=== PATIENT | male | born 1980 | race Caucasian/White ===

== ENCOUNTER 2020-11-22 21:16 | Inpatient (IN) | payer OTHER ==
[~2020-11-22] VITALS: Ht 177.8 cm; Wt 98.4 kg
--- NOTE | 2020-11-23 03:05 | NUR ---
PATIENT ADMISSION COMPLETED. PATIENT REPORTS 10/10 EPIGASTRIC PAIN. PATIENT GIVEN PRN PAIN MEDICATION PER ORDER. PATIENTS IV INFUSING PER ORDER. PATIENT DENIES ANY NAUSEA. ALL QUESTIONS ANSWERED. PATIENT DENIES ANY FURTHER NEEDS. CALL LIGHT IN REACH.
--- NOTE | 2020-11-23 03:09 | NUR ---
PHONE CALL TO , NOTIFIED OF pt REPORT OF PAIN NOT CONTROLLED WITH CURRENT PRN PAIN MEDICATION ORDER. NEW ORDERS RECEIVED AND REPEATED BACK TO VERIFY. OKAY FOR ICE CHIPS IF NOT VOMITTING.
--- NOTE | 2020-11-23 03:25 | NUR ---
PATIENT CONTINUES TO REPORT 8/10 PAIN. PRN PAIN MEDICATION GIVEN PER ORDER. PAITENT IS RESTING IN BED. IV INFUSING PER ORDER.
--- NOTE | 2020-11-23 04:30 | NUR ---
PATIENT GIVEN PRN PAIN MEDICAITON FOR 7/10 PAIN IN HIS MID UPPER QUADRANT. PATIENT IS UP TO THE RESTROOM AT THIS TIME.
--- NOTE | 2020-11-23 05:43 | NUR ---
PATIENT GIVEN PRN PAIN MEDICATION PER REQUEST. PATIENT RATES HIS PAIN AT A 7/10 IN HIS UPPER MID QUADRANT. PATIENT DENIES ANY FURTHER NEEDS.
--- NOTE | 2020-11-23 06:56 | NUR ---
PATIENT GIVEN PRN PAIN MEDICATION PER ORDER. PATIENT WAS ABLE TO VOID. INTAKE AND OUTPUT RECORDED. PATIENT DENIES ANY FURTHER NEEDS. CALL LIGHT IN REACH.
--- NOTE | 2020-11-23 07:45 | NUR ---
THIS RN IN PTS ROOM PER PT REQUEST TO PROVIDE 1MG OF DILUADID, 10MG OXY AND 4MG OF ZOFRAN. IN PTS ROOM AT THIS TIME WELL
--- NOTE | 2020-11-23 09:10 | NUR ---
THIS RN IN PTS ROOM TO GIVE PT HIS MORNING MEDS. PT WAS JUST GIVEN 1MG OF DILUADID. PT REQUESTING A CUP OF COFFEE FOR A HEADACHE. THIS RN PER MD APPROVAL OF KEEPING WATER DOWN PROVIDED PT WITH 1/2 CUP OF COFFEE.
--- NOTE | 2020-11-23 10:57 | NUR ---
SPOKE WITH PATIENT IN ROOM. PATIENT IS CLEARLY UNCOMFORTABLE WITH ABD PAIN SO DID NOT PUSH TO ELABORATE ANSWERS AT THIS TIME. PATIENT LIVES IN [place]. [facility] [place]. DRIVES TRUCK. HAS FRIENDS TO HELP IF NEEDED. USES NO DME. UNCLEAR HOW HE WILL GET HOME YET. COMPANY KNOWS HE IS HERE AND TRUCK IS AT [place]. WILL LET US KNOW IF HE HAS NO WAY TO GET HOME. PLANS TO RETURN TO [place]. DENIES WORRY TO AFFORD MEDS/FOOD/UTILTIES. CM WILL FOLLOW NEEDED.
--- NOTE | 2020-11-23 11:15 | NUR ---
THIS RN IN PTS ROOM TO [facility] ON PT. PT APPEARS TO BE IN PAIN, THIS RN TO DOSE PT WITH 1MG OF DILAUDID AT THIS TIME. PT THEN BECAME GCS OF 14 INSTEAD OF 15 PREVIUSLY. THIS RN PROVIDED PT WITH HIS URINAL CLOSE TO BED. PT TOELRATING SIPS OF COFFEE AND WATER WITH NASUEA ONLY NOTED WHEN PAIN GETS WORSE
--- NOTE | 2020-11-23 12:04 | NUR ---
PATIENT GIVEN 10MG OF PO OXYCODONE FOR 7/10 ABD PAIN.
--- NOTE | 2020-11-23 13:49 | NUR ---
PT BACK TO BED AFTER SHOWER. PT ASKING ABOUT MORE PAIN MEDS. THIS RN DISCUSSED WITH PT ABOUT HIS CONSCIOUSNESS. THIS RN WILL REASESS PTS PAIN LEVEL AND A&O IN A BIT. PT WAS ABLE TO VOID. PROVIDED PT WITH WARM BLANKETS DUE TO PT NOTING THAT HE WAS COLD.
[2020-11-23] MEDS ORDERED: CYCLOBENZAPRINE10 MG PO (14:03)
[2020-11-23] MEDS ORDERED: TRAZODONE HCL50 MG PO (14:03)
[2020-11-23] MEDS ORDERED: PANTOPRAZOLE SO40 MG PO (14:04)
--- NOTE | 2020-11-23 15:20 | NUR ---
Pt ambulated to bedside chair, has stead gait, denies dizziness, pt sitting up in bedside chair, states "comfortable." PT denies needs, watching tv. Pt states pain medication working well, pain mostly 0/10 but does increase to 3/10. PT states 3/10 is a comfortable level.
--- NOTE | 2020-11-23 18:09 | NUR ---
THIS RN IN PTS ROOM TO GIVE PT 1MG OF DILUDID FOR A PIAN 09/27. PT IN PROCESS OF REMOVING HEAT PACK FROM BACK STATING "IT'S TOO HOT" PT REPORTS GETTING PAIN RELIEF THE HEAT PACK. PT REPORTS NEEDING NOTHING FURTHER AT THIS TIME
--- NOTE | 2020-11-23 18:58 | NUR ---
THIS RN IN PTS ROOM TO CHANGE PTS FLUID BAGS. WHEN THIS RN ENTERED ROOM PT WAS UP AT THE SINK AND TAKING A SIP OF WATER, PT MUMBLED THAT HE WAS "RINSING MOUTH" PT THEN BEGAN MUMBLING SOMEHTING THAT WAS UNDETECTABLE TO THIS RN. PT THEN MITERED HIS CORNERS OF HIS BED AND MUMBLED SOMETHING ELSE AND THEN GOT BACK TO BED. PT IS STEADY ON HIS FEET.
--- NOTE | 2020-11-23 19:00 | NUR ---
QAMAR alerts this RN that patient's IV is bleeding. In room to assess, IV leaking fluid. IV patent, flushes well and brisk blood return. Dressing changed and WNL. Pt has no further needs. QAMAR Segovia in room at this time.
--- NOTE | 2020-11-23 19:54 | NUR ---
RECEIVED REPORT FROM DAY SHIFT RN. PATIENT IS RESTING IN BED. PATIENT DENIES ANY NEEDS. CALL LIGHT IN REACH.
--- NOTE | 2020-11-23 20:08 | NUR ---
PATIENT GIVEN PRN PAIN MEDICATION PER ORDER FOR 7/10 PAIN IN HIS UPPER ABD PAIN.
--- NOTE | 2020-11-23 21:20 | NUR ---
PATIENT ASSESMENT COMPLETED. PATIENT GIVEN PRN PAIN MEDICATION PER ORDER FOR 7/10 PAIN IN HIS UPPER MID QUADRANT. PATIENTS IV IS INFUSING PER ORDER. SLEEP MEDICATION GIVEN PER ORDER. PATIENT DENIES ANY NAUSEA. NO FURTHER NEEDS NOTED. CALL LIGHT IN REACH.
--- NOTE | 2020-11-23 22:40 | NUR ---
CALL LIGHT ANSWERED. PRN PAIN MEDICATION ADMINISTERED FOR 7-8/10 PAIN IN ABDOMEN, FLANK, HEADACHE. WARM PACK PROVIDED, KPAD IN PLACE. IVF INFUSING WNL. pt DROWSY, HOLDS WARM PACK STATES "WHAT DO I NEED TO DO WITH THIS PLASTIC PART". REFERRING TO WARM PACK TOP THAT IS CLOSED. pt ASKING WHERE CONTROLS ARE, BED CONTROLS SHOWN TO pt AND CALL LIGHT IN REACH.
--- NOTE | 2020-11-23 23:48 | NUR ---
PATIENT IS RESTING IN BED WITH EYES CLOSED, RR 16. IV INFUSING. K-PAD IN PLACE ON PATIENTS RUQ. CALL LIGHT IN REACH.
--- NOTE | 2020-11-24 01:24 | NUR ---
PATIENT IS RESTING IN BED WITH EYES CLOSED, RR 18. CALL LIGHT IN REACH.
--- NOTE | 2020-11-24 07:17 | NUR ---
0520 PATIENT UNRESPONSIVE. PATIENT PLACED ON 15L VIA NC/15L VIA OXYMASK OXYGEN SATURATION WAS 57%. VITALS TAKEN AND RECORDED 0525 RAPID RESPONSE CALLED. PATIENT STILL UNRESPONSIVE. BS CHECK COMPLETED AND IS 199. 0545 TORRIE NOTIFIED AND IS HEADED TO FLOOR. 0.4MG NARCAN ADMINISTERED 0550 NO RESULT FROM NARCAN. PATIENT IS STILL UNRESPONSIVE. VITALS TAKEN AND RECORDED. 0555 PUPILS REACTIVE, NO RESPONSE TO STIMULI 0558 PT MOVED HEAD BUT NO RESPONSE TO STIMULI. DR BROWNLEE AT THE BEDSIDE 0559 FLUIDS WIDE OPEN IN LEFT HAND, PRESSURE FLUID ADMINISTERED INRIGHT A/C 0559 NOR-EPI DRIP STARTED PER MD @5 VITALS TAKEN AND RECORDED. 0620-PT TO CT 0635-PT OPENED EYES WHEN MOVED FROM CT TABLE AND GRIMACED. STILL NO RESPONSE TO NAME 0645 PT TO ROOM 130 AND QUINTERO PLACED. NO RESPONSE WHEN QUINTERO PLACED 0645 NOR-EPI STOPPED AND FLUIDS RESUMED AT 200ML PER HOUR 0714 REPORT GIVEN TO DAY SHIFT CCU RN
--- NOTE | 2020-11-24 07:30 | NUR ---
RECEIVED REPORT [id number]. PT IN ROOM ON NON-REBREATHER AT 15L AT THIS TIME. V/S STABLE OVERALL.
--- NOTE | 2020-11-24 08:15 | NUR ---
UPON ENTERING PT ROOM @ 0805, IT WAS NOTED THAT PT HAD 15SEC+ PERIODS OF APNEA. O2 SATS DROPPED TO MID 80'S AT THAT TIME. STERNAL RUB DID NOT EVOKE A RESPONSE AT ALL. PT DOES NOT RESPOND TO PAINFUL STIMULI. O2 PUT ON 10L OXYMASK. WILL CALL MD BROWNLEE.
--- NOTE | 2020-11-24 08:16 | NUR ---
ORDER TO PUT PT ON BI-PAP WAS RECEIVED FROM MD BROWNLEE.
--- NOTE | 2020-11-24 08:30 | NUR ---
ARMORED VEHICLE OFFICER CALLED MD BROWNLEE ABOUT INTUBATING PT. ARMORED VEHICLE OFFICER ALSO CALLED [employer]IV[employer]ILL[employer] ADVISOR AND THEY ARE ON THEIR WAY.
--- NOTE | 2020-11-24 08:50 | NUR ---
INTUBATION NOTE: 0837- MICHELLE IN ROOM, SUCTIONS SET UP AND READY TO GO, AMBU BAG SET UP REANDY TO GO, BAG LR WITH STRAIGHT TUBING SET UP AND READY TO GO, ORAL AIRWAY PLACED BY RT A FEW MINUTES PRIOR. 0838- MD BROWNLEE AT BEDSIDE, AGREED TO INTUBATE. HR 124, 143/85 (105), ETCO2 42, RR 12, APNIC PERIODS. 0842- 50MG ROCURONIUM GIVEN, 200MCG PROPFOL GIVEN, 50MG ROCURONIOUM GIVEN, 0843- INTUBATION STARTED AND FINISHED, TUBE 21CM AT THE LIP, 7.5 SIZE TUBE, ETCO2 63. 0844- X-RAY CALLED FOR TUBE PLACEMENT VERYFICATION, PT ON AMBU BAG, RT SETTING UP VENT, 100MCG PHEN. EPI GIVEN DUE TO LOW BP IN THE 60'S. 0847- PT HOOKED UP TO VENT, PHENY. EPI 200MCG GIVEN.
--- NOTE | 2020-11-24 08:50 | NUR ---
MED REC COMPLETE
--- NOTE | 2020-11-24 09:30 | NUR ---
PT SO FAR PT DID NOT NEED ANY ADDITIONAL SEDATION. PT ON 8MCG OF NOR-EPI. BP WDL. RESTRAINTS WDL. WILL CONTINUE TO MONITOR.
--- NOTE | 2020-11-24 10:45 | NUR ---
RECEIVED CALL FROM [facility]. [facility] HAS NO ICU BEDS CURRENTLY. THEY HAVE PLACED PARAMJIT ON WAIT LIST. HIS IS #3 CURRENTLY ON LIST. THEY HAVE MY NUMBER IN DISCHARGE OFFICE, DR FERNANDES CELL PHONE NUMBER TO CONTACT IF A BED OPENS UP. DR BROWNLEE UPDATED. STAFF UPDATED.
--- NOTE | 2020-11-24 11:15 | NUR ---
SPOKE WITH ADDIE AT [facility]. CHART HAD BEEN FAXED TO THEM PRIOR ROUTINE FOR [employer]. DISCUSSED UPDATE WITH THEM. OSMIN RN STATES IT WOULD PROBABLY BE IN HIS BEST INTEREST TO TRANSFER TO [facility] IF POSSIBLE HE IS FROM [place]. SHE WILL REACH OUT TO TRANSFER TEAM.
--- NOTE | 2020-11-24 11:30 | NUR ---
PT SO FAR HAS REQUIRED 2MG OF IV VERSED BECAUSE HE WOKE UP. PT NOW SEDATED AGAIN. WILL CONTINUE TO MONITOR.
--- NOTE | 2020-11-24 12:29 | NUR ---
CHECKED WITH MADDIE OZUNA-PT IS INTEBATED, FROM [place]. WILL CONTINUE TO FOLLOW
--- NOTE | 2020-11-24 12:30 | NUR ---
PT HAS TIMES WHEN HE AWAKENS. PRN VERSED HAS TO BE GIVEN THEN. OVERALL PT STABLE AT THIS TIME.
--- NOTE | 2020-11-24 13:30 | NUR ---
PT NOW ON 5MCG/KG/HR OF PROPOFOL DRIP. PT STILL REQUIRES VERSED AT TIMES. BP'S HOLDING SO FAR. IT WAS NOTED THAT HIS ABDOMEN AT THIS TIME IS MORE DISTENDED. WILL CONTINUE TO MONITOR.
--- NOTE | 2020-11-24 15:30 | NUR ---
PT OVERALL IS STABLE WITH CURRENT MODALITIES.
--- NOTE | 2020-11-24 16:15 | NUR ---
PT NOW HAS A TEMP OF 101.1 F. LOBES ARE VERY DIMINISHED. URINE OUTPUT AT ABOUT 75MLS /HR, AND IS SOMEWHAT DISTENDED WITH NOW HYPOACTIVE BOWEL TONES. WILL CALL MD BROWNLEE.
--- NOTE | 2020-11-24 16:30 | NUR ---
NEW ORDERS WERE RECEIVED FROM MD BROWNLEE. WILL CONTINUE TO MONITOR.
--- NOTE | 2020-11-24 18:05 | NUR ---
V/S WDL SO FAR. URINE /HR REMAINS AT ABOUT 75MLS. PROPOFOL DRIP NOW AT 15MCG/KG/HR. ABD STILL SOMEWHAT DISTENDED, BILATERAL HANDS NOW HAVE SOME EDEMA PRESENT WELL. TEMP NOW 99.1 F. RESTRAINTS WDL, VENT SETTINGS: FIO2 50%, RR 22 PEEP8.
--- NOTE | 2020-11-24 19:56 | NUR ---
SHIFT REPORT RECEIVED FROM MADDIE WALKER. PT'S GIRLFRIEND, MILY IN ROOM. CALL LIGHT ANSWERED, PT APPEARS AGITATED AND IS REACHING FOR TUBE. RE-ORIENTED PT TO SURROUNDINGS/SITUATION, 2MG IV VERSED GIVEN. ANSWERED MILY'S QUESTIONS, SHE HAS CALL LIGHT WITHIN REACH.
--- NOTE | 2020-11-24 20:15 | NUR ---
PT NOW RESTING COMFORTABLY AFTER PRN VERSED, RASS -2. ASSESSMENT COMPLETED -SEE DOCUMENTATION. ORAL SUCTIONING AND ORAL CARE PROVIDED, MINIMAL CLEAR ORAL SECRETIONS NOTED. IN-LINE SUCTIONING PROVIDED, MINIMAL CLEAR SECRETIONS NOTED. ETT REPOSITIONED TO CENTER MOUTH, REMAINS 21CM AT TEETH. OG IN PLACE WITH TUBE FEED INFUSING AT 10ML/HR, 25ML RESIDUAL (MIXED TUBE FEED AND BILE) RETURNED TO PT AND 50ML WATER FLUSH PROVIDED. IV SITES REMAIN PATENT AND INTACT. PROPOFOL CURRENTLY AT 15MCG/KG/MIN. QUINTERO PATENT, CATH CARE PROVIDED. PT REPOSITIONED TO RIGHT SIDE WITH PILLOW SUPPORT. RESTRAINTS RELEASED FOR ROM AND THEN REPLACED, CMS INTACT.
--- NOTE | 2020-11-24 21:00 | NUR ---
DR. BROWNLEE IN TO SEE PT AND PROVIDE AN UPDATE TO PT'S GIRLFRIEND MILY. Rob. MADE ADJUSTMENTS TO VENT SETTINGS. RATE DECREASED TO 18, FIO2 DECREASED TO 30%.
--- NOTE | 2020-11-24 22:00 | NUR ---
VENT SETTINGS UNCHANGED. VC-AC, RATE 18, 30% FIO2, PEEP 8. ORAL AND INLINE SUCTIONING PROVIDED, MODERATE ORAL SECRETIONS NOTED. PT REPOSITIONED TO SUPINE WITH BUE AND BLE ELEVATED ON PILLOWS, HEEL PROTECTORS IN PLACE. IV TO RIGHT AC LEAKING, NEW DRESSING IN PLACE. BP CUFF MOVED TO LEFT ARM AND PULSE OX PROBE REPOSITIONED TO RIGHT HAND. QUINTREO EMPTIED. PROPOFOL WITH NEW TUBING HUNG. RASS -2 AT THIS TIME, PROPOFOL CONTINUES TO INFUSE AT 15 MCG/KG/MIN.
--- NOTE | 2020-11-24 22:30 | NUR ---
PT'S GIRLFRIEND CALLED, PT AGITATED, RASS +2. 2MG IV VERSED GIVEN AND PROPOFOL INCREASED TO 20 MCG/KG/MIN.
--- NOTE | 2020-11-25 | NUR ---
ASSESSMENT COMPLETED-SEE DOCUMENTATION. PT REPOSITIONED ONTO LEFT SIDE WITH PILLOW SUPPORT. WRIST RESTRAINTS REMOVED FOR ROM AND REPLACED, CMS REMAINS INTACT. ORAL CARE PROVIDED, MODERATE ORAL SECRETIONS NOTED WITH SUCTIONING, MINIMAL INLINE SECRETIONS NOTED. ETT REPOSITIONED TO LEFT SIDE OF MOUTH, REMAINS AT 21CM AT TEETH. TUBE FEED CONTINUES AT 10ML/HR, 25ML OF RESIDUAL NOTED AND RETURNED TO PT. IV SITES REMAIN INTACT AND PATENT. PROPOFOL CONTINUES AT 20MCG/KG/MIN. QUINTERO PATENT, UO QS. RASS -1. VENT SETTINGS: VC-AC, RATE 18, 25%, PEEP 8. PT'S GIRLFRIEND REMAINS IN ROOM, HAS CALL LIGHT WITHIN REACH.
--- NOTE | 2020-11-25 01:36 | NUR ---
CALL LIGHT ANSWERED. PT BECOMING AGITATED, GAGGING ON/REACHING FOR ET TUBE. PRN VERSED GIVEN.
--- NOTE | 2020-11-25 02:00 | NUR ---
PT REPOSITIONED TO SUPINE, BUE AND BLE ELEVATED ON PILLOWS. RESTRAINTS RELEASED FOR ROM AND REPLACED, CMS REMAINS INTACT. ORAL AND IN-LINE SUCTIONING PROVIDED, MODERATE ORAL SECRETIONS NOTED. R.T. IN ROOM, FIO2 TITRATED TO 21%. RASS -1.
--- NOTE | 2020-11-25 04:05 | NUR ---
CALL LIGHT ANSWERED. PT IS AGITATED, COUGHING/GAGGING ON ETT WELL REACHING FOR IT, PRN VERSED GIVEN AND PT QUICKLY BECOMES RESTFUL. ORAL CARE AND SUCTIONING PROVIDED, MODERATE WHITE SECRETIONS NOTED. ETT REPOSITIONED TO RIGHT SIDE OF MOUTH. RESTRAINTS RELEASED, ROM PROVIDED, CMS INTACT. PT REPOSITIONED TO RIGHT SIDE WITH PILLOW SUPPORT. QUINTERO PATENT. OG CONTINUES AT 10ML/HR, 10ML RESIDUAL NOTED AND RETURNED TO PT. NO OTHER CHANGES AT THIS TIME.
--- NOTE | 2020-11-25 07:07 | NUR ---
SEDATION TURNED OFF AT 0610. R.T. AT BEDSIDE WITH THIS RN TO ADJUST VENT SETTINGS. AFTER WAKING UP, PT TRIES TO FOLLOW COMMANDS. PER MD, R.T. SWITCHED VENT SETTINGS TO CPAP FOR 30 MINUTES. AT THAT TIME PT ALERT, AND FOLLOWING COMMANDS. PER R.T. SPONTANEOUS RESPIRATIONS ARE PULLING ADEQUATE TIDAL VOLUMES. DR. BROWNLEE IN TO ASSESS PT, EXTUBATION OCCURED AT 0647 TO 2L O2 VIA NC, SHORTLY TITRATED TO 3L. PT AWAKE AND ABLE TO SPEAK SOFTLY, VOICE IS HOARSE. RESTRAINTS REMOVED. PER MD, DIET IS NPO. PT EDUCATED [employer] PROFESSIONAL LIGHT USE, GIRLFRIEND MILY REMAINS AT BEDSIDE.
--- NOTE | 2020-11-25 07:30 | NUR ---
PT IS DRWOSY BUT DOES ANSWER QUESTIONS. PT IS WEAK AND NEEDS SOME PHYS.THERAPY TODAY. PT REMAINS ON 2L O2 NC SO FAR WITH O2 SATS BEING WDL. ALL LOBES ARE DIMINISHED. ABD SOUNDS ARE ACTIVE NOW AND ABDOMEN DOES NOT SEEM THAT DISTENDED ANYMORE EITHER. PT DENIES PAIN BESIDES HIS SOAR THROAT. DELILAH. HAND AND FEET HAVE SOME EDEMA PRESENT. WILL CONTINUE TO MONITOR.
--- NOTE | 2020-11-25 09:25 | NUR ---
PATIENT AWAKE IN BED, S/O AT FOOT OF BED WELL. VITAS AND I&OS CHARTED. QUINTERO EMPTIED. ROOM TIDIED AND FLOOR MOPPED. SMALL CUP OF ICE PROVIDED FOR COMFORT. PATIENT REQUESTS COUGH DROP, RN NOTIFIED. ACREGIVER TRAY ORDERED. WASHCLOTH PROVIDE TO S/O FOR AM CARE. CALL LIGHT IN REACH, NO OTHER NEEDS AT THIS TIME
--- NOTE | 2020-11-25 09:47 | NUR ---
INGRID D/C AT 0934. PT NOW AFEBRILE, PT OVERALL MORE ALERT. PT NOW IN ROOM DRINKING WATER. PT ON ROOM AIR. WILL CONTINUE TO MONITOR.
--- NOTE | 2020-11-25 10:15 | NUR ---
PT HAS SLIGHT LEFT LIP DROOP PRESENT, ARMS HAVE EQUAL BILATERAL STRENGTH. LEFT LEG IS VERY WEAK, PT UNABLE TO HOLD IT UP, RIGHT LEG HAS WEAKNESS PRESENT BUT PT IS ABLE TO PUSH, PULL AND HOLD HIS LEG UP BETTER. PT ALSO SEEMS TO ASPIRATE WHEN HE SWALLOWS LIQUIDS WITHOUT TUCKING HIS CHIN INTO HIS CHEST. WILL LET MD BROWNLEE KNOW.
--- NOTE | 2020-11-25 11:08 | NUR ---
TOLD MD BROWNLEE WAS NEURO CHECK AND HE IS IN ROOM NOW.
--- NOTE | 2020-11-25 11:38 | NUR ---
PT IS NOW EXTUBATED, SITTING UP IN BED VISITING WITH G.FRIEND MILY. PT SLOW TO RESPOND, BUT APPROPRIATE. HAD BRIEF VISIT,GAVE ENCOURAGEMENT, LEFT G.POST AND BLESSING. WILL FOLLOW
--- NOTE | 2020-11-25 12:30 | NUR ---
SPOKE WITH MICHELLE AT [facility] TRANSFER AND UPDATED HER. DISCUSSED PATIENT IS OFF VENTILATOR AND HAS SOME IMPROVEMENT ACCORDING TO DR BROWNLEE. IF THEY STILL WANT HIM TRANSFERRED WE WILL ACCOMODATE. SHE STATES SINCE HE IS IMPROVING AND THEY HAVE NO BED ANYWAY DUE TO STAFFING THAT THEY WILL REMOVE HIM FROM TRANSFER LIST AT THIS TIME. SHE STATES TO CALL HER BACK IF THINGS CHANGE. [phone] [id number]. UPDATED ADDIE AT [facility].
--- NOTE | 2020-11-25 12:40 | NUR ---
PATIENT AT SIDE OF BED WITH S/O ATTEMPTING TO USE URINAL. UNABLE TO VOID. BACK TO BED. VITALS CHARTED. WARM BLANKET PROVIDED. S/O AT BEDSIDE
--- NOTE | 2020-11-25 13:00 | NUR ---
PT IN ROOM RESTING. NEURO STATUS UNCHANGED. WILL CONTINUE TO MONITOR.
--- NOTE | 2020-11-25 14:33 | NUR ---
PATIENT ON BSC, S/O ASSISTING. PATIENT UNABLE TO VOID. RN AARON IN ROOM AT THIS TIME. PATIENT IN BED, BLADDER SCAN COMPLETE AND SHOWING 643ML IN BLADDER. STRAIGHT CATH USED AND 900ML DRAINED FROM PATIENTS BLADDER. LINENS CHANGED. CLEAR ENSURE PROVIDED PER RN. CALL LIGHT IN REACH, NO OTHER NEEDS AT THIS TIME
--- NOTE | 2020-11-25 14:52 | NUR ---
PT HAS BEEN UNABLE TO VOID BUT HAS THE URGE TO THE POINT OF HIS ABDOMEN HURTING. MD BROWNLEE WAS INFORMED. A BLADDER SCAN SHOWED 643MLS IN HIS BLADDER. PER MD BROWNLEE ORDER WE WERE ABLE TO DO A STRAIGHT CATH WHICH HAD 900MLS OF OUTPUT.
--- NOTE | 2020-11-25 15:23 | NUR ---
PATIENT WAS EXTUBATED THIS AM. TUBE FEEDING NO LONGER NEEDED. CLEAR LIQUID DIET IN PLACE. WILL CONTINUE TO MONITOR.
--- NOTE | 2020-11-25 17:22 | NUR ---
BLADDER SCAN SHOWED 864MLS PRESENT. QUINTERO TO BE INSERTED.
--- NOTE | 2020-11-25 18:57 | NUR ---
PT CAME BACK FROM CT AT 1840. QUINTERO OUTPUT SINCE 1800 HAS BEEN ABOUT 1500MLS. PT NOW IS COMPLAINING OF CHEST PAIN. MD SOMERS WAS CALLED AND AN EKG WAS ORDERED. NO OTHER ORDERS FOR NOW.
--- NOTE | 2020-11-25 20:10 | NUR ---
SHIFT REPORT RECEIVED FROM MADDIE WALKER. ASSESSMENT COMPLETED. PT IS ALERT/ORIENTED, SOMEWHAT SLOW TO RESPOND. PUPILS EQUAL AND REACTIVE TO LIGHT BUT WHEN TRYING TO FOCUS BOTH EYES TOWARDS NOSE, LEFT EYE DEVIATES LATERALLY. STRENGTH APPEARS EQUAL IN UPPER EXTREMITIES, BUT LEFT FOOT APPEARS TO HAVE FOOT DROP PT STRUGGLES TO FLEX LEFT FOOT. DENIES NUMBNESS/TINGLING, BUT REPORTS SKIN IS EXTREMELY SENSITIVE. REPORTS CHEST PAIN HAS IMPROVED AND IS TOLERABLE AT 3/10, CHEWABLE ASPIRIN GIVEN. LUNGS CLEAR/DIM, RA. HR REGULAR. BOWEL TONES ACTIVE, DENIES NAUSEA. SKIN GROSSLY INTACT, MILD DEPENDENT EDEMA TO HANDS AND FEET. QUINTERO PATENT, PT PROVIDED OWN PERICARE. PT ABLE TO BRUSH HIS OWN TEETH. PT DOING WELL WITH SIPS OF CLEAR LIQUIDS AND TUCKING HIS CHIN TO SWALLOW. COUGH DROP PROVIDED PER REQUEST FOR SORE THROAT. IV SITES INTACT, FLUIDS INFUSING WNL. PT'S GIRLFRIEND MILY REMAINS AT BEDSIDE.
--- NOTE | 2020-11-25 20:18 | NUR ---
PT STARTED OFF THE DAY BEING CONFUSED, ANGRY, AND DEMANDING. PT REPORTED HAVING A HARD TIME UNDERSTANDING WHAT WAS GOING ON, DISPITE MULTIPLE EXPLANIATIONS. PT'S DAUGHTER CALLED, CONFIRMED SHE IS HIS ACTUAL CAREGIVER AT HOME, AND IS WILLING TO COME TO THE BEDSIDE WITH HER DAD, SHE STATES SHE HAD COVID ONE MONTH AGO. PT ABLE TO CALM DOWN AND APPEARS MUCH HAPPIER WITH HIS DAUGHTER AT THE BEDSIDE, THIS POSITIVE ATTITUDE LASTS THE REST OF THE SHIFT. PT'S IV SITE REMAINS INTACT ALL DAY AND FLUSHES EASILY. PT QUINTERO CATH IS INTACT WITH GOOD URINE OUTPUT. PT'S VITALS REMAIN WNL, PB SLIGHTLY ELEVATED DISPITE METOPROLOL 50 MG GIVEN THIS AM. PT HAS A SMALL APPITITE, AND STATES HE CAN'T TASTE HIS FOOD VERY WELL. PT STAED IN THE BED ALL DAY EITHER SITTING AT THE SIDE OR LAYING DOWN. PT REPORTS NOT BEING ABLE TO SLEEP LAST NIGHT, BUT WAS ABLE TO SLEEP FOR ABOUT 2.5 HOURS THIS AFTERNOON.
--- NOTE | 2020-11-25 20:45 | NUR ---
DR. SOMERS IN ROOM TO DISCUSS CT RESULTS, PER PT REQUEST.
--- NOTE | 2020-11-25 21:21 | EKG ---
[facility] [address] [place], [place] [address] Signed Sinus tachycardia Otherwise normal ECG No previous ECGs available Confirmed by ARRON SOMERS DO ([id number]) on 11/25/2020 9:21:42 PM Electronically Signed By: ARRON SOMERS DO 11/25/202120 PATIENT NAME: JAMAL OCHOA Electrocardiogram DATE OF : 82 PHYSICIAN: ARRON SOMERS DO REPORT #: [id number] REPORT IS CONFIDENTIAL AND NOT TO BE RELEASED WITHOUT AUTHORIZATION
--- NOTE | 2020-11-25 21:21 | EKG ---
[facility] [address] [place], [place] [address] Signed Normal sinus rhythm Normal ECG When compared with ECG of 24-NOV-2020 06:07, (Unconfirmed) Vent. rate has decreased BY 45 BPM Confirmed by ARRON SOMERS DO ([id number]) on 11/25/2020 9:21:50 PM Electronically Signed By: ARRON SMOERS DO 11/25/202120 PATIENT NAME: JODIE OCHOAIN Electrocardiogram DATE OF : 82 PHYSICIAN: ARRON SOMERS DO REPORT #: [id number] REPORT IS CONFIDENTIAL AND NOT TO BE RELEASED WITHOUT AUTHORIZATION
--- NOTE | 2020-11-25 21:31 | EKG ---
[facility] [address] [place], [place] [address] Signed Sinus tachycardia Otherwise normal ECG When compared with ECG of 22-NOV-2020 21:20, (Unconfirmed) Nonspecific T wave abnormality now evident in Inferior leads Confirmed by ARRON SOMERS DO ([id number]) on 11/25/2020 9:31:46 PM Electronically Signed By: ARRON SOMERS DO 11/25/202130 PATIENT NAME: JAMAL OCHOA Electrocardiogram DATE OF : [birth year] PHYSICIAN: ARRON SOMERS DO REPORT #: [id number] REPORT IS CONFIDENTIAL AND NOT TO BE RELEASED WITHOUT AUTHORIZATION
--- NOTE | 2020-11-25 23:11 | NUR ---
PT SLEEPING AT THIS TIME, NO APPARENT DISTRESS. RESPIRATIONS EVEN AND UNLABORED. VITAL SIGNS STABLE.
--- NOTE | 2020-11-26 00:18 | NUR ---
ASSESSMENT COMPLETED AND UNCHANGED. PT DENIES COMPLAINTS OR REQUESTS. QUINTERO EMPTIED, LARGE OUTPUT OF DILUTE URINE. IV SITES REMAIN INTACT AND INFUSING WNL. CALL LIGHT WITHIN REACH.
--- NOTE | 2020-11-26 02:03 | NUR ---
PT APPEARS TO BE SLEEPING, NO APPARENT DISTRESS. RESPIRATIONS EVEN AND UNLABORED. VITAL SIGNS STABLE.
--- NOTE | 2020-11-26 04:03 | NUR ---
PT CONTINUES TO SLEEP AT THIS TIME, NO APPARENT DISTRESS, RESPIRATIONS EVEN AND UNLABORED. VITAL SIGNS STABLE. QUINTERO EMPTIED. WILL ALLOW FOR REST AT THIS TIME.
--- NOTE | 2020-11-26 06:00 | NUR ---
IN TO START ZOSYN INFUSION. PT RESTING WITH EYES CLOSED, APPEARS TO BE SLEEPING. NO APPARENT DISTRESS, RESPIRATIONS EVEN AND UNLABORED. QUINTERO EMPTIED, LARGE AMOUNT OF URINE OUTPUT. PT REMAINS ON ROOM AIR, VITAL SIGNS STABLE. WILL ALLOW FOR REST AT THIS TIME.
--- NOTE | 2020-11-26 07:45 | NUR ---
REPORT RECIEVED FROM MADDIE HERCULES. PATIENT IS RESTING IN BED. BREATHING IS UNLABORED AND EQUAL. CALL LIGHT WITHIN REACH NO FUTHER NEEDS.
--- NOTE | 2020-11-26 08:30 | NUR ---
PATIENT ASSESSMENT COMPLETE. MEDICATIONS GIVEN ORDERED. PATIENT IS ALERT AND ORIENTED X4. PUPILS ARE 3 MM IN SIZE. PATIENT HAS A LEFT EYE GAZE. PATIENT HAS LEFT SIDE WEAKNESS IN HIS LEFT UPPER AND LOWER EXTERMITIE. PATIENT LUNG SOUNDS ARE CLEAR THROUGHOUT. URINE OUTPUT IS CLEAR AND YELLOW AND PATIENT LAST BM WAS ON 11/25. PATIENT DENIES FEELING NAUSEATED. PATIENT COMPLAINS OF 4/10 PAIN AND REQUESTED PAIN MEDICATIONS. OXYCODONE PRN GIVEN. PATIENT TOOK PO MEDICATION THIS MORNING WITH APPLESAUCE. D5LR RUNNING AT 100 MLS/HR. PATIENT UPDATED ON PLAN OF CARE. NO QUESTIONS AT THIS TIME. GIRLFRIEND AT BEDSIDE. CALL LIGHT WITHIN REACH NO FUTHER NEEDS.
--- NOTE | 2020-11-26 09:50 | NUR ---
PATIENT REPORT GIVEN TO MADDIE RHODES. PATIENT WAS TRANSFERED BY BED TO THE MEDICAL SURGICAL UNIT. PATIENT BREATHING WAS EQUAL AND NON LABORED. PATIENT DID NOT HAVE ANY QUESTIONS AT THIS TIME.
--- NOTE | 2020-11-26 10:40 | NUR ---
REPORT RECEIVED FROM CCU NURSE. PT ARRIVED TO FLOOR VIA BED. AT BEDSIDE. VITALS TAKEN AND BP SLIGHTILY ELEVATED. TELE IN PLACE. PT [id number]. CALL LIGHT IN REACH.
--- NOTE | 2020-11-26 11:00 | NUR ---
REPORT RECEIVED FROM CHARGE AND PT. CARE RESUMED. PT IS ORIENTED TO ALL BUT DATE. PARTNER IS IN THE ROOM, MASSAGING LEGS. PUPILS UNEVEN, BUT REACTIVE. LEFT FOOT IS WEAKER THAN RIGHT AND PT. IV SITES WNL. PT. DENIES DIFFICULTY SWALLOWING. LUNGS CLEAR AND 02 SAT IS 98% ON RA. HE REPORTS MILD CHEST PAIN THAT STARTED YESTERDAY BUT REFUSES PAIN MEDS. DISCUSSED SAFETY AND POC. PT. BROUGHT WALKER BUT INSTRUCTED NOT TO USE UNTIL PT/OT ARRIVES SOON. LEFT RESTING WITH CALL LIGHT IN REACH.
--- NOTE | 2020-11-26 11:10 | NUR ---
REPORT VIVEN TO L[facility] PERKINS TO RESUME CARES FOR PT TODAY.
--- NOTE | 2020-11-26 14:30 | NUR ---
PT. REQUESTED THROAT LOZENGE AND ADMIN. TO PT. HE REQUESTED CATH. BE REMOVED. DISCUSSED WITH MD AND HE ORDERED REMOVAL. PT. DENIES FURTHER NEEDS AND LEFT RESTING IN BED WITH CALL LIGHT IN REACH.
--- NOTE | 2020-11-26 16:02 | NUR ---
PT. REPORTS DISCOMFORT AT MEATUS/CATHETER AREA. NO REDNESS NOTED. CATH MANIPULATED AND PATENT. PT. INSTRUCTED TO CLEAN AROUND THE AREA, HE IS GETTING READY FOR A SHOWER. WILL CONTINUE TO MONITOR.
--- NOTE | 2020-11-26 17:11 | NUR ---
PT. HAD DIFFICULTY SWALLOWING PO MEDS WITH WATER. MEDS GIVEN IN APPLE SAUCE WITH CHIN TUCKED. PT. ABLE TO SWALLOW WITHOUT DIFFICULTY. PT. ASSISTED WITH ORDERING DINNER. LEFT RESTING WITH CALL LIGHT IN REACH.
--- NOTE | 2020-11-26 21:14 | NUR ---
pt on room air. tele#[address], sinus rhythm. no cp or sob. lungs clear bilat strong database dba, aspiration precautions in place, tucks chin down, tolerated oxycodone with apple sauce well, medicated per c/o generalized and back pain. cepacol lozenger given per sore throat, hob elevated, in bed, ivf infusing w/o problems, female friend in room. uses call light, no facial drooping noted. no weakness at this time of extremities, will reassess when up. f/c patent
--- NOTE | 2020-11-26 23:00 | NUR ---
COIN MACHINE OPERATOR ROUNDING NOTE. PT RESTING IN BED WITH SIGNIFICANT OTHER IN BED WITH HIM. PT SCHEDULED MEDICATIONS ADMINISTERED. PT DENIES QUESTIONS, CONCERNS, OR NEEDS AT THIS TIME. CALL LIGHT IN REACH.
--- NOTE | 2020-11-26 23:41 | NUR ---
RESTING, HOB ELEVATED, ONROOM AIR, TELE#[address], SR, IVF AND ABX INFUSING W/O PROBLEMS. CALL LIGHT AT BEDSIDE, FALLL AND ASPIRATION PRECAUTIONS IN PLACE. FEMALE FRIEND IN ROOM
--- NOTE | 2020-11-27 05:23 | NUR ---
Pt on room air, tele#8 in place, SR to Sinus vivian. Pt denies sob or CP. no facial droop noted. Pupils not equal, right bigger than left and sluggish. strong heat treating operator, ivf infusing w/o problems, no c/o adverse reaction to abx. took meds with apple sauce, pt on clear liquids, aspiration precautions in place, no cough noted after taking meds. lungs clear bilat. 2 SL patent. tolerating liquids well, medicated with Oxycodone x1 per generalized pain, effective. hob elevated to his comfort, uses chin tuck down when eating/drinking. female friend rooming in, call light and liquids at hands reach.
--- NOTE | 2020-11-27 07:38 | NUR ---
Shift report recieved from RN Alexus, pt resting in bed safely w/ call light in reach and eyes closed, RR even and unlabored.
--- NOTE | 2020-11-27 08:15 | NUR ---
PT RESTING SAFELY IN BED W/ CALL LIGHT IN REACH, SO AT BEDSIDE. MORNING ASSESMENT COMPLETED, SCHEDULED MEDS GIVEN, AND IV FLUIDS INFUSING PER PROVIDER ORDERS. PT DENIES ANY PAIN, NAUSEA, OR NEEDS AT THIS TIME.
--- NOTE | 2020-11-27 10:00 | NUR ---
PT'S IV ZOSYN COMPLETE, IV LEVAQUIN NOW INFUSING PER PROVIDERS ORDERS.
--- NOTE | 2020-11-27 12:00 | NUR ---
PT'S MOTHER IN ROOM TO VISIT NO NEEDS AT THIS TIME
--- NOTE | 2020-11-27 14:30 | NUR ---
QUINTERO CATH REMOVED PER PROVIDER ORDER, PT TOLERATED WELL
--- NOTE | 2020-11-27 16:00 | NUR ---
PT CALLED FOR ASSISTANCE TO THE BR, SBA W/FWW, PT ABLE TO VOID SUFFICIENT AMOUNT OF URINE, PT BACK IN BED RESTING SAFELY W/ CALL LIGHT IN REACH.
--- NOTE | 2020-11-27 18:37 | NUR ---
PT AMBULATING AROUND ROOM W/FWW INDEPENDNTLY. PT WALKED 5 LAPS AROUND ROOM AND IS NOW BACK IN BED RESTING SAFELY. IV FLUIDS INFUSING PER PROVIDERS ORDER.
--- NOTE | 2020-11-27 20:18 | NUR ---
pt awake, falt affect, room air, clear lungs, tele#[address], SR, denies CP or SOB. RH IV SL removed. 2x2 in place, sl LH and LAC patent, IVF infusing w/o problems, SBA?FWW, uses urinal, voiding QS, tolerating fluids well, no emesis. call light at bedside
--- NOTE | 2020-11-28 00:50 | NUR ---
AWAKE, C/O ITCHING BACK, NO REDNESS NOTED, LIGHTLY SCRABBED BACK WITH WASHCLOTH, STATED FEELING BETTER. NO C/O PAIN, C/O UNABLE TO SLEEP, DECLINES WARM BLANKET OR NOISE MACHINE. PLEASANT, VOIDING QS, HAS GOT UP TO BR W/O ASSIST.
--- NOTE | 2020-11-28 02:26 | NUR ---
awake, watching tv, tele#[address], SR, denies cp or sob, has gottenup to br using fww, has not used call light. instructed to call for assist, stated understanding, has voided QS, tolerating ensure and sips of water, no c/o pain. hob elevated to comofrt, fresh apple sauce container givenonrequest. IVf infusing
--- NOTE | 2020-11-28 09:13 | NUR ---
ADMINISTERED MORNING MEDS. ABLE TO SWALLOW WITHOUT DIFFICULTY. TOOK PILLS NORMALLY WITH WATER. OT SUSAN IN ROOM TO ASSESS.
--- NOTE | 2020-11-28 10:50 | NUR ---
PATIENT SITTING UP IN BED. VITLAS AND I&O'S CHARTED. CALL LIGHT IN REACH. NO FURTHER NEEDS AT THIS TIME.
--- NOTE | 2020-11-28 11:02 | NUR ---
SPOKE WITH PATIENT IN ROOM. PATIENT STATES HE HAS BEEN AMBULATING BUT FEELS WEAK AND HAS BEEN USING A WALKER. FEELS HE DOES NEED ONE TO DISCHARGE HOME. STATES HIS PARENTS ARE HERE NOW AND THEY WILL GET HIM BACK TO [place]. WE DISCUSSED HIS STAY SINCE I SAW HIM LAST. HE DOES NOT REMEMBER SOME THINGS. WE DISCUSSED ALCOHOL USE. HE STATES "I THINK THIS SCARED ME SOBER". DISCUSSED THAT THE [facility] HAS PROGRAMS THAT HE CAN PARTICIPATE IN. DISCUSSED THAT SOMETIMES IT GETS HARDER ONCE HOME IN OWN ENVIRONMENT. HE STATES HE WILL CALL THEM WHEN HE GETS BACK HOME. WE DISCUSSED THAT HE WOULD BE ABLE TO GET A WALKER COVERED THROUGH [facility] BUT THAT WE DO NOT HAVE DME HERE. DISCUSSED THAT I WILL CALL [facility]. HE STATES HE HAS A COUPLE FORMS FROM THE [facility] HE NEEDS PRINTED OFF FOR APPLYING FOR DISABILITY. HE WAS ABLE TO GIVE ME THE FORM NUMBERS. HE STATES HE HAS NOT BEEN SLEEPING WELL AT ALL. STATES HIS USUAL IS 5-6 HOURS A NIGHT, BUT LATELY HE IS MAYBE GETTING 1-2 HOURS A DAY HERE. FEELS HE WILL SLEEP BETTER AT HOME. ASKED IF HE LET THE STAFF KNOW AT NIGHT TO SEE IF HE CAN GET A SLEEP AID, HE STATES HE IS RELUCTANT TO TAKE ANYTHING AFTER "WHAT HAPPENED LAST WEEK". I ASKED IF HE WANTS A NAP SIGN PLACED ON DOOR SO HE WON'T BE DISTURBED SO HE CAN TRY TO SLEEP. HE STATES HE WOULD LIKE TO TRY. STAFF UPDATED. CALLED [facility] BUT THEY ARE CLOSED TODAY FOR HOLIDAY. CALLED [facility] AND THEY DO HAVE WALKERS THERE FOR PURCHASE.
--- NOTE | 2020-11-28 12:09 | NUR ---
PUMP BEEPING. PT TRYIN TO GET SOME REST.
--- NOTE | 2020-11-28 13:30 | NUR ---
STOPPED BY SEVERAL TIMES, PATIENT WAS NAPPING. PATIENT WAS AWAKE THIS TIME WITH BROTHER IN ROOM. PATIENT GIVEN PRINTED FORMS HE REQUESTED FROM [place] [facility]. [facility]ED THAT [facility] SO CANNOT TALK WITH THEM. PATIENTS FAMILY IS HERE AND ARE PLANNING TO TAKE HIM BACK TO [place] TODAY. DISCUSSED THAT [facility] FOR [facility]. PATIENT STATES HE DOES THAT SOMETIMES BECAUSE GOING TO THE [facility] TAKES SO MUCH LONGER. THEY DECIDED THIS IS WHAT THEY WANT TO DO. PATIENT STATES HE WILL F/U WITH HIS CLINIC IN [place]. DISCUSSED HE WILL NEED TO CALL TOMORROW TO SET UP APPOINTMENT AND TO GET THERAPY SCHEDULED. HE STATES HE WILL DO THIS. QUESTIONS ANSWERED. STAFF UPDATED.
--- NOTE | 2020-11-28 14:12 | NUR ---
PT APPEARS MORE RESTED AND IS HAVING A VISITOR FROM OUT [place] TOWN.
--- NOTE | 2020-11-28 14:47 | NUR ---
PATIENT SITTING IN EDGE OF BED TALKING WITH VISITOR. VITALS AND I&O'S CHARTED. CALL LIGHT IN REACH. NO FURTHER NEEDS AT THIS TIME.
[2020-11-28] MEDS ORDERED: LIPITOR40 MG PO (15:55)
[2020-11-28] MEDS ORDERED: LISINOPRIL20 MG PO (15:55)
--- NOTE | 2020-11-28 16:45 | NUR ---
report received from MADDIE Perry, pt working w/ PT, no complaints or needs at this time.
--- NOTE | 2020-11-29 13:48 | NUR ---
CALLED [facility] [phone]. WAS TRANSFERRED TO [facility]. SPOKE WITH THEM REGARDING PATIENT NEEDING F/U AFTER DISCHARGE. SHE STATES THERE IS A NEW PROCEDURE FOR [facility] AND THEY HAVE TO CALL THE [facility] 72/HOUR HOTLINE AFTER DISCHARGE FROM HOSPITALS. STATES THIS NUMBER IS [phone]. DISCUSSED HE WILL NEED OUTPATIENT SERVICES. SHE STATES TO FAX REFERRAL/[facility] TO [phone]. SHE STATES CAN CALL [phone] TO MAKE APPOINTMENT WITH PCP DR DAUGHERTY. SPOKE WITH PATIENT BY PHONE AROUND 1230 TODAY. STATES HE HAS THE WALKER HIS FAMILY PURCHASED AND SAVED THE RECEIPT FOR [facility]. STATES HE NOTIFIED [facility] THAT HE WAS DISCHARGED YESTERDAY. HE STATES HE TRIED TO MAKE AN APPOINTMENT WITH PCP BUT AFTER ONE HOUR ON HOLD HE WAS DISCONNECTED. DISCUSSED THAT I WILL FAX THE [facility] AND THE 72 HOURS ALLOWED TO CALL FOR DISCHARGE. PATIENT STATES HE ALREADY CALLED THEM THIS MORNING THAT HE WAS DISCHARGED. PATIENT STATES HE ALREADY FILED HIS DISABILITY PAPERWORK. STATES HIS FAMILY IS WITH HIM. HE STATES HE WILL TRY AND CALL AGAIN EARLY IN THE MORNING FOR APPOINTMENT HE HAS UNDERSTOOD THAT IT IS EASIER TO GET ANSWERED. PATIENT HAS NO QUESTIONS. TRIED TO CALL FOR APPOINTMENT FOR PATIENT. ON HOLD FOR 46 MINUTES THEN WAS #4 IN LINE AND PHONE DISCONNECTED. FAXED [facility]/FACESHEET/DISCHARGE SUMMARY TO [phone] WITH CONFIRMATION @1314PM.
--- NOTE | 2020-11-30 12:39 | NUR ---
RECEIVED CALL FROM [facility] WHO WORKS FOR PATIENTS PCP. HE RECEIVED MY MESSAGE AND WILL FOLLOW UP WITH PATIENT. HE STATES PATIENT HAS HAD MULTIPLE PANCREATITIS EPISODES ALL OVER [place] AND RELATED TO ALCOHOL ABUSE. STATES THEY ENCOURAGE PATIENT TO SEEK TREATMENT. HE STATES PATIENT IS HARD TO GET IN TOUCH WITH. STATES THEY LEAVE MESSAGES BUT HE DOES NOT RETURN CALLS. I ASKED HIM TO PLEASE TRY AND SCHEDULE PATIENT FOR APPOINTMENT. HE STATES THEY HAVE SOME OPENINGS NEXT WEEK AND HE WILL TRY AND CONTACT PATIENT TO BE SEEN. HE ASKS THAT I FAX THEM SOME CLINICALS FOR THE PCP TO GO THROUGH. FAXED FACESHEET/H&P/IMAGING REPORTS/DISCHARGE SUMMARY TO HIM AT [phone]. FAX CONFIRMATION WAS RECEIVED AT 1259PM.
== END 2020-11-28 17:35 | disposition home or self-care (01) | DRG 438 ==
LOC: ED 21:16 → MS 21:18 → CCU 11-23 08:00 → MS 11-23 08:00 → CCU 11-24 06:25 → MS 11-26 10:05
PROVIDERS: ADMIT Internal Medicine; ATTEND Internal Medicine
PROC: 0BH17EZ Insertion of Endotracheal Airway into Trachea, Via Natural or Artificial Opening (ICD-10-PCS; principal; 2020-11-24)
PROC: 5A1935Z Respiratory Ventilation, Less than 24 Consecutive Hours (ICD-10-PCS; 2020-11-24)
PROC: 3E033XZ Introduction of Vasopressor into Peripheral Vein, Percutaneous Approach (ICD-10-PCS; 2020-11-24)
DX: K85.20 Alcohol induced acute pancreatitis without necrosis or infection (principal); A41.9 Sepsis, unspecified organism; R65.21 Severe sepsis with septic shock; J69.0 Pneumonitis due to inhalation of food and vomit; J18.9 Pneumonia, unspecified organism; J96.01 Acute respiratory failure with hypoxia; J96.02 Acute respiratory failure with hypercapnia; G93.41 Metabolic encephalopathy; I63.89 Other cerebral infarction; Z20.822 Contact with and (suspected) exposure to COVID-19; R13.12 Dysphagia, oropharyngeal phase; I10 Essential (primary) hypertension; Z72.89 Other problems related to lifestyle; Z87.891 Personal history of nicotine dependence
CPT/HCPCS: 31500; 36600; 70450; 70496; 70498; 71045; 71260; 74177; 80053; 80061; 82803; 83036; 83605; 83690; 83735; 84484; 85025; 87040; 92610; 93005; 93010; 93306; 94002; 94003; 96374; 96375; 96376; 97110; 97116; 97162; 97165; 97530; 99285-25; C9113; G0378; J1170; J1650; J1956; J2250; J2310; J2370; J2405; J2543; J2704; J3480; J7030; J7060; J7121; Q9967; U0003